=== PATIENT | female | born 1990 | race Caucasian/White ===

== ENCOUNTER 2016-09-04 22:30 | Inpatient (IN) ==
[2016-09-04] MEDS ORDERED: ACETAMINOPHEN 325 MG TABLET PO PRN (22:51)
[2016-09-04] MEDS ORDERED: BUTORPHANOL 2 MG/ML VIAL IV PRN (22:51)
[2016-09-04] MEDS ORDERED: ONDANSETRON 4 MG/2 ML VIAL IV PRN (22:51)
[2016-09-04] MEDS: LACTATED RINGERS 1,000 ML IV SCH (23:09)
[2016-09-04 23:17] LABS: Basophils # 0.1 10*3/uL (0.0-0.2); Basophils % 0.5 % (0.0-0.8); Eosinophils # 0.1 10*3/uL (0.0-0.87); Hematocrit 33.3 VOL% (35.7-47.0); Hemoglobin 10.5 GM/DL (12.0-16.0); Immature Granulocytes % 0.3 %; Immature Granulocytes Absolute 0.04 #; Lymphocytes # 3.5 10*3/uL (1.4-4.0); Lymphocytes % 28.3 % (21.3-54.2); Mean Corpuscular HGB Conc 31.5 GM/DL (32-36); Mean Corpuscular Hemoglobin 25 PG (27-34); Mean Corpuscular Volume 79.5 FL (87-102); Mean Platelet Volume 12.7 FL (9.6-12.0); Monocytes # 0.8 10*3/uL (0.11-0.8); Monocytes % 6.4 % (1.7-12.7); Neutrophils # 7.9 10*3/uL (1.4-7.4); Neutrophils % 63.5 % (38.7-73.9); Platelet Count 129 T/CUMM (130-400); Red Blood Count 4.19 MC/CUMM (3.8-5.5); Red Cell Distribution Width 14.3 % (9.3-17.3); White Blood Count 12.4 T/CUMM (4-12)
[2016-09-05] MEDS ORDERED: TERBUTALINE 1 MG/1 ML VIAL SUBCUT ONE (05:26)
[2016-09-05] MEDS ORDERED: TERBUTALINE 1 MG/1 ML VIAL SUBCUT PRN (05:33)
[2016-09-05] MEDS ORDERED: CITRIC ACID/SODIUM CITRATE 30 ML UDCUP PO ONE (05:34)
[2016-09-05] MEDS ORDERED: FAMOTIDINE 20 MG/2 ML VIAL IV ONE ×2 (05:35→05:36)
[2016-09-05] MEDS ORDERED: OXYTOCIN/LR 20 UNIT/1,000 ML BAG IV ONE ×2 (05:36→07:07)
[2016-09-05] MEDS ORDERED: ONDANSETRON 4 MG/2 ML VIAL ONE (05:52)
[2016-09-05] MEDS ORDERED: MORPHINE 10 MG/10 ML VIAL ONE (06:48)
[2016-09-05] MEDS ORDERED: ePHEDrine 50 MG/ML AMP ONE (06:48)
--- NOTE | 2016-09-05 07:02 | OB/GYN History & Physical ---
History of Present Illness Chief complaint: at 39 weeks for elective induction History of present illness: Ms. Steward is a 26 year old female 1 para 0 at 39 weeks estimated gestational age who was found early to have a positive AFP for for trisomy 18. She is constantly referred to Dr. Zack Garcia and he was unable to find any evidence of trisomy 18. He did have follow-up visits and ultrasounds throughout her . Also in her early third trimester NSTs were done due the patient's history of being a smoker. The NSTs were noted to be reactive however occasionally there would be a spontaneous deceleration that would recover and resume a normal reactive pattern. This was referred to Dr. Garcia for evaluation and again according to him there was no evidence of any abnormality that he could demonstrate. Patient had a normal biophysical profile this past with normal BING. Ultrasound was performed looking for evidence of any nuchal cord and there was none. Also Dopplers were performed of the cord which were in the normal limits. Patient is consequently admitted for Cytotec induction. Ultrasound estimated weight is 8 pounds with adequate clinical pelvimetry. Presentation is confirmed vertex. The risks benefits alternatives explained patient detail informed consent was obtained. Home Medications Medication Instructions Recorded Confirmed Type No122/Iron/Folic Acid 1 tablet PO DAILY 08/24/16 09/04/16 History [ Multi Tablet] Allergies Allergy/AdvReac Type Severity Reaction Status Date / Time No Known Allergies Allergy Verified 08/24/16 10:16 12 point system: reviewed and no additional remarkable complaints except as stated Medical,Surgical,& Family Hx - Medical History Reproductive: History of: Reproductive Problems (right fallopian tube and ovary removal) No history of: Ectopic , Complication - Surgical History Reproductive Surgeries: Patient denies;: Section - Family History Family History: Reports;: Family Hypertension (mgm) Denies;: Family Anesthesia Reaction, Family Cancer, Family Diabetes, Family Heart Disease, Family Hematology, Family Psychiatric Problems, Family Stroke, Additional Family History - Social History Smoking Status: Former smoker Frequency of Alcohol Use: None Type of Drug Use: None 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: Vital Signs Temp Pulse Resp BP Pulse Ox 09/05/16 04:00 97.5 F L 61 18 92/53 09/05/16 02:45 98.1 F 09/05/16 01:45 98.1 F 09/04/16 23:49 83 18 111/72 09/04/16 22:34 97.8 F 82 20 121/84 100 General appearance: normal weight, no acute distress - Head Head exam: Present: normal inspection, normocephalic, atraumatic - Neck Neck exam: Present: normal inspection - Respiratory Respiratory exam: Present: clear to auscultation bilaterally - Breast Breasts: as per HPI Menstruation: as per HPI - Cardiovascular Cardiovascular exam: Present: regular rate and rhythm - GI/Abdominal GI/Abdominal exam: Present: normal bowel sounds - Extremities Exam Extremities exam: Present: normal inspection, normal capillary refill - Back Exam Back exam: Present: normal inspection - Neurological Exam Neurological exam: Present: alert, oriented X3 - Psychiatric Psychiatric exam: Present: normal affect, normal mood - Skin Skin exam: Present: normal color, warm Assessment and Plan (1) with 39 completed weeks gestation Status: Acute Current Visit: Yes (2) Elective induction of labor planned Status: Acute Current Visit: Yes (3) Initially screen positive for trisomy 18 Status: Acute Current Visit: Yes Results - Labs CBC & BMP: 09/04/16 23:06
--- NOTE | 2016-09-05 07:06 | Anesthesia Post-Op ---
Anesthesia Post OP - Post Ansesthetic Evaluation Patient seen in post op: Yes Resp: within normal limits CV: within normal limits Mental: within normal limits Temp: within normal limits Yqjy-[id number]-[id number]: within normal limits Nausea and Vomiting: within normal limits Pain: within normal limits
--- NOTE | 2016-09-05 07:06 | Operative Note ---
Date of procedure: 09/05/16 Pre-op diagnosis: 39 weeks 2. Prolonged deceleration remote from delivery Post-op diagnosis: same Procedure: This is Dr. Freire dictating operative note: Preoperative diagnosis intrauterine intrauterine at [39] weeks 2. Prolonged deceleration remote from delivery 3. Initial genetic screen positive for trisomy 18 with negative MFM workup Postoperative diagnosis same Procedure primary low transverse section Surgeon Dr. Freire Anesthesia spinal Findings liveborn [male] 8 pounds 5 ounces Apgars 9 9 Complications none Estimated blood loss 200 mL Disposition patient to recovery room in [stable] condition. to nursery in [stable] condition Operative description: After the risks benefits and alternatives were explained to the patient in detail and informed consent was obtained, the patient was taken to the operating room where she was placed in the supine position. After achieving appropriate anesthesia the abdomen was prepped and draped in the usual sterile fashion. A Ferguson catheter was placed without difficulty. After the appropriate time out and after adequate anesthesia was ascertained a Pfannenstiel skin incision was made and carried down through the subcutaneous tissue down to the fascia. The fascia was nicked in the midportion and undermined and incised both laterally and cephalad using sharp dissection with the curved Roberts scissors. 2 Simon clamps were used to elevate the rectus fascia superiorly which was bluntly and sharply dissected away from the rectus muscle below. This was repeated inferiorly. The rectus muscles were then bluntly in the midline the peritoneum identified grasped with 2 curved hemostats and entered sharply using the curved Metzenbaum scissors. A bladder blade was then placed in the pelvis and a bladder flap was created off the lower uterine segment using sharp dissection with the Metzenbaum scissors. The bladder blade was then repositioned. A transverse incision was made across the lower uterine segment down to the amnion. Entry into the amnion revealed [ clear] amniotic fluid. The uterine incision was then extended laterally using bilateral finger fractionation. Upon palpation the presenting part was [vertex ] which was gently elevated out of the pelvis and delivered onto the abdominal wall using appropriate fundal pressure. The 's nose and oropharynx were bulb and DeLee suctioned and the had spontaneous cry delivery. The cord was doubly clamped and cut and the was handed over to the team for care. Cord blood was obtained. The placenta was delivered manually and IV Pitocin antibiotics and Zofran were begun. The uterus was then exteriorized and placed in a wet laparotomy sponge. 2 fingers wrapped around a wet laparotomy sponge were used to remove all residual membranes from the uterine cavity. The uterus was then closed in 2 layers. The first layer of myometrium was closed with #1 Monocryl suture in an inner locking fashion beginning at both angles and overlapping slightly in the midline. The second layer of myometrium was closed with #1 Monocryl suture in a running imbricating stitch beginning at the right angle and continuing the length of the uterine incision. Hemostasis was noted to be excellent. The posterior cul-de-sac was then irrigated and cleansed with a wet laparotomy sponge and the uterus was placed back in the abdominal cavity. Both pericolic gutters were then irrigated and cleansed with a wet lap sponge. The uterine incision was then re-irrigated and again noted to be hemostatic. All counts were noted to be correct. The subcutaneous tissue was then closed using 3-0 Vicryl suture in a running fashion. The subfascial area was made hemostatic using electrocautery and closed with #1 PDS suture in a running fashion beginning at both angles and overlapping slightly in the midline. The subcutaneous tissue was irrigated and made hemostatic using electrocautery and closed with 2-0 Vicryl suture in a running fashion and the skin was closed with wide skin arianna and a sterile pressure bandage was applied to the wound. All sponge needle and instrument counts were correct -3 at the end of the procedure. The patient's urine was [ clear] both at the beginning in the end of the procedure. The patient was taken to the recovery room in stable condition Anesthesia: spinal Surgeon / Physician: Pravin Freire Estimated blood loss: other (200) Specimens: other (Placenta to pathology) Condition: stable Disposition: floor Results - Labs CBC & BMP: 09/04/16 23:06 Discharge Plan - Discharge Medications No Action No122/Iron/Folic Acid [ Multi Tablet] 1 tablet PO DAILY - Follow Up or Referral - Forms/Instructions
[2016-09-05] MEDS ORDERED: DIPH/TET/ACEL PERT BOOSTER VACCINE 0.5 ML VIAL IM ONE (07:07)
[2016-09-05] MEDS ORDERED: ONDANSETRON 4 MG/2 ML VIAL IV PRN (07:07)
[2016-09-05] MEDS ORDERED: LANOLIN 50% CREAM 0.3 OZ TUBE TOP PRN (07:07)
[2016-09-05] MEDS ORDERED: RHO(D) IMMUNE GLOBULIN 300 MCG SYRINGE IM ONE (07:07)
[2016-09-05] MEDS ORDERED: WITCH HAZEL PADS 100/JAR TOP PRN (07:07)
[2016-09-05] MEDS ORDERED: BISACODYL 10 MG SUPP RECTAL PRN (07:07)
[2016-09-05] MEDS ORDERED: MEASLES/MUMPS/RUBELLA VACCINE 0.5 ML VIAL SUBCUT ONE (07:07)
[2016-09-05] MEDS ORDERED: ACETAMINOPHEN 325 MG TABLET PO PRN (07:07)
[2016-09-05] MEDS ORDERED: HYDROCORTISONE 2.5% RECTAL CREAM 30 GM TUBE TOP PRN (07:07)
[2016-09-05] MEDS ORDERED: BENZOCAINE 20%/MENTHOL 0.5% SPRAY 56 GM CAN TOP PRN (07:07)
[2016-09-05] MEDS ORDERED: HYDROmorphone 2 MG/1 ML VIAL IV ONE (08:26)
[2016-09-05] MEDS: oxyCODONE/ACETAMINOPHEN 5-325 MG TABLET PO PRN ×4 (09:10→21:35)
[2016-09-05] MEDS: LACTATED RINGERS 1,000 ML IV SCH ×2 (10:29→18:15)
[2016-09-05] MEDS: IBUPROFEN 800 MG TABLET PO PRN (20:54)
[2016-09-05] MEDS: DOCUSATE SODIUM 100 MG CAPSULE PO SCH (21:25)
[2016-09-06] MEDS: IBUPROFEN 800 MG TABLET PO PRN (04:40)
[2016-09-06] MEDS: oxyCODONE/ACETAMINOPHEN 5-325 MG TABLET PO PRN ×5 (04:40→22:22)
[2016-09-06 06:11] LABS: Basophils % 0.3 % (0.0-0.8); Eosinophils # 0.1 10*3/uL (0.0-0.87); Eosinophils % 0.7 % (0.00-10.9); Hematocrit 30.6 VOL% (35.7-47.0); Hemoglobin 9.6 GM/DL (12.0-16.0); Immature Granulocytes % 0.5 %; Immature Granulocytes Absolute 0.05 #; Lymphocytes # 2.7 10*3/uL (1.4-4.0); Lymphocytes % 25.6 % (21.3-54.2); Mean Corpuscular HGB Conc 31.4 GM/DL (32-36); Mean Corpuscular Hemoglobin 25 PG (27-34); Mean Corpuscular Volume 80.7 FL (87-102); Mean Platelet Volume 12.7 FL (9.6-12.0); Monocytes # 0.8 10*3/uL (0.11-0.8); Monocytes % 7.1 % (1.7-12.7); Neutrophils # 6.9 10*3/uL (1.4-7.4); Neutrophils % 65.8 % (38.7-73.9); Platelet Count 103 T/CUMM (130-400); Red Blood Count 3.79 MC/CUMM (3.8-5.5); Red Cell Distribution Width 14.2 % (9.3-17.3); White Blood Count 10.5 T/CUMM (4-12)
[2016-09-06] MEDS: MULTIVITAMIN (PRENATAL) TABLET PO SCH (08:28)
[2016-09-06] MEDS: DOCUSATE SODIUM 100 MG CAPSULE PO SCH ×2 (08:28→21:50)
--- NOTE | 2016-09-06 08:37 | OB/GYN Progress Note ---
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 She is tolerating her diet. She is alert and oriented -3 Cardiovascular regular rate and rhythm Lungs clear to auscultation Abdomen soft with appropriate tenderness and bowel sounds are present and her incision is dry no bleeding Is good refill HEENT shows pink conjunctiva assessment 1 day of surgery doing well Plan continue present management with expected DC in a.m. 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
--- NOTE | 2016-09-06 11:20 | Pathology Report from [facility] ---
[facility] ACCESSION # : [id number] PATIENT NAME : Bhavin Frank ORDERING DR : RAMY SEN MD CLINICAL HX: IUP @ 39 wks, induction of labor, Nonreassuring FHR pattern, prolonged heart rate decel POST-OP DX: Same SPECIMEN INFO: Placenta GROSS DESCRIPTION: The specimen is received fresh labeled BHAVIN FRANK/ PLACENTA consists of a 539.0 gm placenta measures 18.0 x 18.0 x 2.5 cm. The membranes are pink-alvarez and translucent. The umbilical cord measures 14.5 cm, contains three vessels and is eccentrically inserted . The surface is blue-martinez and intact. The maternal surface is hemorrhagic and intact with numerous calcification present. Sectioning reveal no gross abnormalities. Sections submitted: (A) membranes and cord and (B) and maternal surfaces. DIAGNOSIS FOR BHAVIN FRANK: PLACENTA, MEMBRANES, UMBILICAL CORD: Focal placental infarction with dystrophic calcification, mild intervillous blood, subchorionic blood clot. Tri-vessel umbilical cord, eccentrically inserted. Membranes with focal chronic inflammation and attached blood. COLLECTED DATE: 09/05/2016 [facility] REPORT DATE: 09/06/2016 ELECTRONICALLY SIGNED BY: Rocael Chambers M.D. 09/06/2016 - 9:46:55 TYRELL
[2016-09-06] MEDS ORDERED: oxyCODONE/ACETAMINOPHEN 5-325 MG TABLET PO PRN (13:49)
[2016-09-06] MEDS ORDERED: SIMETHICONE CHEW 80 MG TABLET PO PRN (21:10)
[2016-09-06] MEDS ORDERED: MAGNESIUM HYDROXIDE SUSP 30 ML UDCUP PO PRN (21:10)
[2016-09-07] MEDS: IBUPROFEN 800 MG TABLET PO PRN ×2 (01:25→08:42)
[2016-09-07] MEDS: oxyCODONE/ACETAMINOPHEN 5-325 MG TABLET PO PRN (06:20)
[2016-09-07 07:54] VITALS: BP 106/68
[2016-09-07] MEDS: DOCUSATE SODIUM 100 MG CAPSULE PO SCH (08:35)
[2016-09-07] MEDS: MULTIVITAMIN (PRENATAL) TABLET PO SCH (08:35)
--- NOTE | 2016-09-07 10:08 | Discharge Summary ---
Hospital Course - Hospital Course Hospital Course: Postoperatively the patient did well. She had quick return of bowel and bladder function. She remained afebrile and normotensive throughout her hospitalization. She is consequently discharged on postoperative day #2 on a regular diet. Her discharge medication included Percocet for pain. She was given bleeding and infection cautions instructed maintain pelvic rest and limited activity and instructed to return office in 1 week for follow-up Diagnosis - Discharge Diagnosis (1) with 39 completed weeks gestation Status: Acute (2) Elective induction of labor planned Status: Acute (3) Initially screen positive for trisomy 18 Status: Acute Specialty Discharge - Follow Up or Referrals Follow up with: Pravin Freire MD [Physician] - Discharge Plan - Discharge Data Disposition: Disch To Home/Self Care Discharge Diet: regular diet Activity: increase activity as tolerated, no lifting, other (Pelvic rest) Hygiene: may shower Weight Bearing at Discharge: full weight bearing Driving: not until seen by doctor Contact your physician if you experience:: fever over 101, Difficulty voiding, Redness or swelling, Nausea/Vomiting, Shortness of breath, Bleeding, pain uncontrolled by pain medications - Discharge Medications New oxyCODONE/ACETAMINOPHEN 5-325 [Percocet 5-325] 1 tablet PO Q4H PRN #20 tablet PRN Reason: Pain Severe (8-10) Continue No122/Iron/Folic Acid [ Multi Tablet] 1 tablet PO DAILY - Follow Up or Referral Follow Up: Pravin Freire MD [Physician] - - Forms/Instructions Instructions: Section (DC), Surgical Site Infections (GEN), Bleeding (DC) Exam - Constitutional Vitals: Period Temp Pulse Resp BP Sys/Workman Pulse Ox Last 24 Hr 97.4 F-99.5 F 68-92 16-20 103-114/61-71 97-99 DS: Provider Date of admission: 09/04/16 22:51 Primary care physician: . No PCP Attending physician on admission: Day Decker Consults: 09/04/16 22:51 Consult to Anesthesiology [CONS] Routine Consulting Provider: Reason for Anesthesiology: Epidural Consult Comment: Epidural for pain managment 09/05/16 07:07 Consult to Bumper Operator [CONS] Routine Consult Bumper Operator: Breast Feeding Discharging clinician: Day Decker Expected date of discharge: 09/07/16
== END 2016-09-07 14:05 | disposition home or self-care (01) | DRG 766 ==
LOC: N.LDOUT 22:30 → N.LD 22:31 → N.OB 09-05 09:29
PROVIDERS: ADMIT Specialist; ATTEND Specialist
PROC: LDCSECT (ICD-10-PCS; 2016-09-05 05:45)